=== PATIENT | female | born 1985 | race American Indian/Alaskan Native ===

== ENCOUNTER 2021-03-18 13:28 | Emergency (ER) | payer SELFPAY ==
[2021-03-18 14:04] VITALS: BP 134/82
--- NOTE | 2021-03-18 14:17 | Emergency Department Report ---
- General Chief Complaint: Chest Pain Stated Complaint: CHEST PAIN, HEADACHE, EARS STOPPED UP Time Seen by Provider: 03/18/21 14:04 Source: patient Mode of arrival: Ambulatory Limitations: No Limitations - History of Present Illness Initial Comments: Patient is a 35-year-old female presents emergency room with complaints of a frontal headache for 10 days. She has associated rhinorrhea, nasal congestion, right ear fullness, "minor chest discomfort", occasional dry cough. She denies any productive cough, fever, nausea, vomiting, diarrhea, shortness of breath, abdominal pain. She denies any known sick contacts or recent travel. Past medical history of hypertension. She has an allergy to vancomycin. She states her last menstrual cycle was 03/08/2021, she denies any possibility of . - Related Data Previous Rx's Medication Instructions Recorded Last Taken Type Amoxicillin/Potassium Clav 1 each PO BID 10 Days #20 tablet 03/18/21 Unknown Rx [Augmentin 875-125 Tablet] Butalb/Acetaminophen/Caffeine 1 cap PO Q8HR PRN #10 cap 03/18/21 Unknown Rx [Fioricet 50-300-40 mg CAP] Fluticasone [Flonase] 1 spray NS QDAY #1 bottle 03/18/21 Unknown Rx Loratadine 10 mg PO DAILY #14 tablet 03/18/21 Unknown Rx Allergies Allergy/AdvReac Type Severity Reaction Status Date / Time vancomycin AdvReac Anaphylaxis Verified 03/18/21 13:47 ED Review of Systems ROS: Stated complaint: CHEST PAIN, HEADACHE, EARS STOPPED UP Other details as noted in HPI Comment: All other systems reviewed and negative ED Past Medical Hx - Past Medical History Additional medical history: anemia - Social History Smoking Status: Never Smoker Substance Use Type: None - Medications Home Medications: Home Medications Medication Instructions Recorded Confirmed Last Taken Type Amoxicillin/Potassium Clav 1 each PO BID 10 Days #20 tablet 03/18/21 Unknown Rx [Augmentin 875-125 Tablet] Butalb/Acetaminophen/Caffeine 1 cap PO Q8HR PRN #10 cap 03/18/21 Unknown Rx [Fioricet 50-300-40 mg CAP] Fluticasone [Flonase] 1 spray NS QDAY #1 bottle 03/18/21 Unknown Rx Loratadine 10 mg PO DAILY #14 tablet 03/18/21 Unknown Rx ED Physical Exam - General Limitations: No Limitations General appearance: alert, in no apparent distress - Head Head exam: Present: atraumatic, normocephalic - Eye Eye exam: Present: normal appearance - ENT ENT exam: Present: normal orophraynx, mucous membranes moist, TM's normal bilaterally, normal external ear exam, other (edematous nasal turbinates bilaterally, maxillary sinus ttp bilaterally) - Respiratory Respiratory exam: Present: normal lung sounds bilaterally. Absent: respiratory distress, wheezes, rales, rhonchi, stridor, chest wall tenderness, accessory muscle use, decreased breath sounds, prolonged expiratory - Cardiovascular Cardiovascular Exam: Present: regular rate, normal rhythm, normal heart sounds. Absent: systolic murmur, diastolic murmur, rubs, gallop - Neurological Exam Neurological exam: Present: alert, oriented X3 - Psychiatric Psychiatric exam: Present: normal affect, normal mood - Skin Skin exam: Present: warm, dry, intact ED Course Vital Signs 03/18/21 13:46 Temperature 98.3 F Pulse Rate 86 Respiratory 20 Rate Blood Pressure 134/82 O2 Sat by Pulse 99 Oximetry ED Medical Decision Making - Medical Decision Making Patient is a 35-year-old female presents emergency room with complaints of a frontal headache for 10 days. She has associated rhinorrhea, nasal congestion, right ear fullness, "minor chest discomfort", occasional dry cough. She denies any productive cough, fever, nausea, vomiting, diarrhea, shortness of breath, abdominal pain. She denies any known sick contacts or recent travel. Past medical history of hypertension. She has an allergy to vancomycin. She states her last menstrual cycle was 03/08/2021, she denies any possibility of . Vitals are normal. On exam: edematous nasal turbinates bilaterally, maxillary sinus ttp bilaterally, breath sounds are clear bilaterally, no wheezing, no rales, no rhonchi. Examination appears consistent with acute sinusitis. Patient symptoms have been ongoing for 10 days, antibiotic therapy is appropriate. Advised patient Please use medication as prescribed. Increase your fluid intake. Follow-up with your primary care doctor. Return to emergency room for any new or worsening symptoms. Critical care attestation.: If time is entered above; I have spent that time in minutes in the direct care of this critically ill patient, excluding procedure time. ED Disposition Clinical Impression: Acute sinusitis Qualifiers: Sinusitis location: maxillary Recurrence: non-recurrent Qualified Code(s): J01.00 - Acute maxillary sinusitis, unspecified Disposition: DC-01 TO HOME OR SELFCARE Is pt being admited?: No Does the pt Need Aspirin: No Condition: Stable Instructions: Sinusitis, Adult, [id number] Additional Instructions: Please use medication as prescribed. Increase your fluid intake. Follow-up with your primary care doctor. Return to emergency room for any new or wor sening symptoms. Prescriptions: Amoxicillin/Potassium Clav [Augmentin 875-125 Tablet] 1 each PO BID 10 Days #20 tablet Butalb/Acetaminophen/Caffeine [Fioricet 50-300-40 mg CAP] 1 cap PO Q8HR PRN #10 cap PRN Reason: headache Fluticasone [Flonase] 1 spray NS QDAY #1 bottle Loratadine 10 mg PO DAILY #14 tablet Referrals: MIRA DÍAZ MD [Staff Physician] - 2-3 Days [facility] [Provider Group] - 2-3 Days Forms: Work/School Release Form(ED) Time of Disposition: 14:15 Print Language: TAJIK
== END 2021-03-18 14:46 | disposition home or self-care (01) ==
LOC: ED 13:28
DX: J01.90 Acute sinusitis, unspecified (principal); Z79.899 Other long term (current) drug therapy; Z88.8 Allergy status to other drugs, medicaments and biological substances
CPT/HCPCS: 99282